=== PATIENT | male | born 1955 | race Caucasian/White ===

== ENCOUNTER 2017-12-06 05:37 | Day surgery (SDC) | payer OTHER ==
--- NOTE | 2017-12-06 09:09 | OP ---
DATE OF PROCEDURE: 12/06/2017. SURGEON: Yee Olivas M.D. OPERATIVE PROCEDURE: Colonoscopy with polypectomy. PREOPERATIVE DIAGNOSIS: 62-year-old male undergoing colonoscopy for colon cancer screening . POSTOPERATIVE DIAGNOSES: 1. Sessile polyp proximal transverse colon. 2. Retained fecal material intermittently in the colon, which made the exam difficult. 3. Mild sigmoid diverticular disease. 4. Hemorrhoids. PROCEDURE IN DETAIL: The patient was placed on his left lateral position and was given sedation by [facility]. A rectal exam was done before scope was advanced into the rectum. No lesions felt on rectal exam. A [employer] video colonoscope was introduced into the rectum and advanced all the way to the cecum. The patient's prep is not good. The patient had intermittent pockets of fecal mat erial and what appears to be ____ matter. The mucosa appears normal throughout the colon. The ileoc ecal area, cecum, ascending colon and hepatic flexure, no pathology seen. The proximal transverse co heath showed a sessile polyp. This was removed with polypectomy snare with good hemostasis. The trans verse colon, splenic flexure, descending colon, no pathology seen. The sigmoid colon showed mild div erticular disease. Some areas are not well visualized because of the pockets of fecal material. Rec viktoriya revealed hemorrhoids. DISCHARGE PLANNING: This is a 62-year-old male who came in for colonoscopy for colon cance r screening. He underwent colonoscopy with polypectomy. DISCHARGE RECOMMENDATIONS: 1. The patient was advised to call me if he develops abdominal pain and hematochezia. 2. High-fiber diet. 3. To come back to clinic in 2 weeks.
== END 2017-12-06 09:32 | disposition home or self-care (01) ==
LOC: SDC 05:37
PROVIDERS: ATTEND Internal Medicine Gastroenterology
PROC: 0DBL8ZX Excision of Transverse Colon, Via Natural or Artificial Opening Endoscopic, Diagnostic (ICD-10-PCS; principal; 2017-12-06)
DX: Z12.11 Encounter for screening for malignant neoplasm of colon (principal); K63.5 Polyp of colon; K63.89 Other specified diseases of intestine; K57.30 Diverticulosis of large intestine without perforation or abscess without bleeding; K64.9 Unspecified hemorrhoids; Z79.84 Long term (current) use of oral hypoglycemic drugs; Z79.82 Long term (current) use of aspirin; Z79.899 Other long term (current) drug therapy
CPT/HCPCS: 36416; 88305